=== PATIENT | male | born 1970 | race Caucasian/White ===

== ENCOUNTER 2018-11-04 18:57 | Emergency (ER) | payer OTHER ==
[~2018-11-04 18:57] MED LIST: Lidocaine 1% with EPINEPHrine 1:100,000 20 ML MDV ONE
[2018-11-04 19:04] VITALS: BP 153/87; PULSE 88
[2018-11-04] MEDS ORDERED: Diphtheria,Pertussis(Acell),Tetanus Vaccine 0.5 ML Syringe ONE (19:11)
--- NOTE | 2018-11-04 19:13 | EDM.PDOC ---
ED HPI GENERAL MEDICAL PROBLEM - General Chief Complaint: Laceration Stated Complaint: laceration Time Seen by Provider: 11/04/18 19:01 Source of Information: Reports: Patient History Limitations: Reports: No Limitations - History of Present Illness INITIAL COMMENTS - FREE TEXT/NARRATIVE: laceration to right forehead. piece from the smoker hit him in head. Denies any LOC with it. Onset: Today Location: Reports: Face Severity: Mild - Related Data Allergies Allergy/AdvReac Type Severity Reaction Status Date / Time azithromycin [From Zithromax] Allergy Intermediate Hives Verified 11/04/18 18:57 Home Meds: Home Meds . [No Known Home Meds] 11/17/14 [History] Past Medical History - Past Surgical History Other GI Surgeries/Procedures: Hiatal hernia repair Other Musculoskeletal Surgeries/Procedures:: reports shoulder injury to both shoulders with rotator cuff repair both shoulder; previous back surgery and scopes to both knees. Social & Family History - Living Situation & Occupation Living situation: Reports: , with Spouse Occupation: Employed ED ROS GENERAL - Review of Systems Review Of Systems: See Below Constitutional: Reports: No Symptoms HEENT: Denies: Ear Pain Respiratory: Reports: No Symptoms Cardiovascular: Reports: No Symptoms GI/Abdominal: Reports: No Symptoms Skin: Reports: Wound (right forehead.) Neurological: Denies: Confusion, Dizziness, Headache, Numbness, Syncope, Tingling ED EXAM, SKIN/RASH Exam: See Below Exam Limited By: No Limitations General Appearance: Alert, WD/WN, No Apparent Distress Eye Exam: Bilateral Eye: PERRL (3mm and briskly) Ears: Normal External Exam, Normal Canal, Normal TMs Nose: Normal Inspection Throat/Mouth: Normal Inspection, Normal Oropharynx Head: Atraumatic, Normocephalic Neck: Normal Inspection, Supple, Non-Tender, Full Range of Motion Respiratory/Chest: No Respiratory Distress, Lungs Clear, Normal Breath Sounds Cardiovascular: Normal Peripheral Pulses, Regular Rate, Rhythm GI/Abdominal: Normal Bowel Sounds, Soft, Non-Tender Extremities: Normal Inspection, No Pedal Edema Neurological: Alert, Oriented, Normal Cognition Psychiatric: Normal Affect Skin: Warm, Dry, Wound/Incision (2.2 cm laceration to the right forehead.) Location, Skin: Head ED SKIN PROCEDURES - Laceration/Wound Repair Right Forehead Lac/Wound length In cm: 2.2 Appearance: Linear, Clean Distal NVT: Neuro & Vascular Intact Anesthetic Type: Local Local Anesthesia - Lidocaine (Xylocaine): 1% with EPI Local Anesthetic Volume: 3cc Skin Prep: Other (haroldo clens) Exploration/Debridement/Repair: In a Bloodless Field Suture Size: 5-0 # of Sutures: 5 Suture Type: Nylon, Interrupted Sterile Dressing Applied: Nurse Tetanus Status Addressed: Yes Complications: No Departure - Departure Time of Disposition: 19:23 Disposition: Home, Self-Care 01 Condition: Good Clinical Impression: Laceration - Discharge Information *PRESCRIPTION DRUG MONITORING PROGRAM REVIEWED*: Not Applicable *COPY OF PRESCRIPTION DRUG MONITORING REPORT IN PATIENT GHANSHYAM: Not Applicable Instructions: Laceration Care, Adult, [id number] Additional Instructions: tylenol or advl as needed for discomfort keep laceration clean and dry antibiotic ointment for the next 1-2 days sutures out in 7-10 days - Problem List & Annotations (1) Laceration SNOMED Code(s): 131828528 Code(s): [id number] - Status: Acute Priority: High - Problem List Review Problem List Initiated/Reviewed/Updated: Yes
== END 2018-11-04 19:40 | disposition home or self-care (01) ==
LOC: CC.ED 18:57
DX: S01.81XA Laceration without foreign body of other part of head, initial encounter (principal); Z23 Encounter for immunization; Z88.1 Allergy status to other antibiotic agents; W22.8XXA Striking against or struck by other objects, initial encounter
CPT/HCPCS: 12001; 90471; 90715; 99283